=== PATIENT | female | born 1965 | race Caucasian/White ===

== ENCOUNTER 2024-12-16 09:34 | Emergency (ER) | payer BC, SELFPAY ==
--- NOTE | ~2024-12-16 | XR_ITS ---
EXAMINATION: XR CHEST 2 VIEWS HISTORY: Pneumonia? Tightness palpitations COMPARISON: There are no prior studies available for comparison. FINDINGS: PA and lateral views of the chest are submitted. The lungs are expanded and clear. There is no pleural effusion, pneumothorax, or pulmonary vascular congestion. The heart is normal in size. The bones are intact. XR/XR chest 2V IMPRESSION: Clear lungs. Electronically signed by: Eddi Valencia MD 12/16/2024 10:41 AM EDT
[2024-12-16 10:12] VITALS: BP 164/72; PULSE 78; RESP 20; TEMP 37; O2SAT 98; BMI 33.4
--- NOTE | 2024-12-16 10:15 | ECG_ITS ---
Test Reason : PALPITATIONS' Blood Pressure : */* mmHG Vent. Rate : 80 BPM Atrial Rate : 80 BPM P-R Int : 172 ms QRS Dur : 90 ms QT Int : 394 ms P-R-T Axes : 62 41 44 degrees QTcB Int : 454 ms Sinus rhythm with occasional Premature ventricular complexes Otherwise normal ECG No previous ECGs available Referred By: Ishmael Morse Electronically Signed By: LINA MILLER MD
--- NOTE | 2024-12-16 10:16 | ED_ITS ---
HPI - General Adult General Chief complaint: General Medical Stated complaint: High BP Time Seen by Provider: 12/16/24 11:57 Source: patient, RN notes reviewed and old records reviewed Mode of arrival: ambulatory Limitations: no limitations History of Present Illness ED Provider: Ciera [facility] narrative: Patient is a 59-year-old female presenting to the emergency department after checking her blood pressure and finding it to be 171/95. She notes that her primary care provider had previously recommended she begin an antihypertensive medication but patient did not want to at that time and has been monitoring her blood pressure readings at home. States she does not always check her blood pressure at the same time each day but does try to check with her feet flat on the floor after resting for a few minutes. She states that over the past week she has felt intermittent palpitations with occasional lightheadedness associated with the palpitations. She denies headaches or vision changes. States she has been on a Holter monitor and had other cardiac evaluation in the past. A time she feels her symptoms are exacerbated after eating at night. She denies current chest pain or dyspnea, palpitations. Denies current headache or vision changes. complaint: high blood pressure Onset (ago): month(s) Related Data Allergies Allergy/AdvReac Type Severity Reaction Status Date / Time Sulfa (Sulfonamide Allergy Rash Verified 12/16/24 10:12 Antibiotics) Review of Systems 2 Review of Systems: as per hpi Yes all other systems are reviewed and are negative Constitutional: Constitutional: Reports as per HPI [facility] Social History Social History Advance Directives: No Advance Directives Information Provided: No Physical Exam ED Vital Signs: Vital Signs - 24 hr 12/16/24 10:12 12/16/24 12:09 12/16/24 13:34 Temperature 98.6 F 98.3 F 98.3 F Pulse Rate 78 77 71 Respiratory Rate 20 16 18 Blood Pressure 164/72 H 154/62 H 154/65 H Pulse Oximetry 98 99 97 Oxygen Delivery Method Room Air Room Air Room Air BMI result Body Mass Index 33.4 Vital signs have been reviewed and appear to be correct. Blood pressure elevated. Heart rate normal. Respiratory rate normal. Temperature normal. Oxygen saturation normal. Const General: cooperative, healthy appearing and no acute distress Orientation/consciousness: oriented to person, oriented to place, oriented to time and patient oriented x3 Limitations: no limitations HENMT Head: Yes normocephalic and Yes atraumatic Ears: external ears normal General nose exam: Normal external nose present Face and sinus: Yes face symmetric Mouth: oropharynx normal and moist mucous membranes Throat: Yes uvula midline Eyes Pupils: Equal, round and reactive pupils present Neck Neck: Yes normal visual inspection and Yes supple Resp Effort & Inspection: normal respiratory effort and able to speak in complete sentences Auscultation: clear to auscultation bilaterally Cardio Rate: regular rate Rhythm: regular rhythm Heart sounds: S1 normal heart sound present and S2 normal heart sound present GI Palpation (GI): Soft to palpation and nontender Auscultation: normoactive bowel sounds General: Yes no CVA tenderness Back/Spine/Pelvis Back: no CVA tenderness Skin General skin exam: elasticity normal and turgor normal Neuro General: oriented to person, oriented to place, oriented to time, patient oriented x3, moves all extremities, no focal motor deficits and CN's II-XI intact bilaterally Cranial nerves: Yes Equal, round and reactive pupils present Cognition (Neuro): normal cognition Extrem General: Yes full ROM, Yes no pedal edema and Yes no calf tenderness Psych Mental Status: mental status grossly normal Affect: normal affect Thought process: Normal thought process present Course Course Course Narrative: RME: 59 yold female presents tot he ED for elevated blood pressure readings at home with palpitations for the past couple of days. labs, EkG, and chest xray ordered Medical Decision Making Medical Decision Making MDM Narrative: Patient is a 59-year-old female presenting to the emergency department after checking her blood pressure and finding it to be 171/95. On exam patient is awake, A+Ox3, BP elevated, VS otherwise WNL, afebrile, normal neurological exam without focal deficits, physical exam findings as above. Given reported symptoms and physical exam findings, initial differential includes but is not limited to hypertension, electrolyte abnormality. Unlikely ACS. Low suspicion for ICH as patient denies headache or vision changes. EKG shows sinus rhythm with PVCs. Labs unremarkable, negative troponin. X-ray chest notable for no acute abnormality. My interpretation is in agreement with the radiologist's interpretation. Results discussed with patient and all questions answered. Had lengthy discussion with the patient regarding causes of hypertension, as well as rationale for treating hypertension. Encouraged patient to call PCP for follow up appointment to initiate antihypertensive medication. Return precautions discussed at bedside. Patient verbalized understanding of and agreement with plan. Differential Diagnosis Differential Diagnoses: The differential diagnosis associated with the presentation includes as per [facility] Admission/Observation Consideration of admission/observation: Escalation of care including admission/observation considered Patient would have been admitted to the hospital and transferred to appropriate facility had their clinical presentation warranted hospital admission. Lab Data [facility] Lab Attestation statement: I reviewed the patient's lab results. as per [facility] 12/16/24 10:27 12/16/24 10:27 Labs: Lab Results 12/16/24 Range/Units 10:27 WBC 9.1 (4.8-10.8) X10*3/uL RBC 4.99 (4.20-5.50) X10*6/uL Hgb 14.9 (12.0-16.0) g/dl Hct 44.6 (37.0-47.0) % MCV 89.4 (80.0-98.0) fL MCH 29.9 (27.0-33.0) pg MCHC 33.4 (31.0-35.0) g/dl RDW 12.5 (11.0-16.0) % Plt Count 241 (160-400) X10*3/uL MPV 10.7 (9.4-12.3) fL Immature Gran % (Auto) 0.6 H (0.0-0.4) % Neut % (Auto) 75.9 H (45-73) % Lymph % (Auto) 17.0 L (20-40) % [place] % (Auto) 4.4 (2-11) % Eos % (Auto) 1.1 (0-4) % Baso % (Auto) 1.0 (0-2) % Lymph # (Auto) 1.5 (1.2-4.9) X10*3/uL [place] # (Auto) 0.4 (0.1-1.2) X10*3/uL Eos # (Auto) 0.1 (0.0-0.4) X10*3/uL Baso # (Auto) 0.1 (0.0-0.2) X10*3/uL Abs Immat Gran (auto) 0.05 H (0.00-0.03) X10*3/uL Absolute Neuts (auto) 6.9 (2.0-8.3) x10*3/uL Absolute Nucleated RBC 0.000 (0.0-0.012) X10*3/uL Nucleated RBC % (auto) 0.0 (0.0-0.2) /100WBC Sodium 140 (135-145) mmol/L Potassium 4.1 (3.3-5.1) mmol/L Chloride 108 (96-108) mmol/L Carbon Dioxide 26 (22-29) mmol/L Anion Gap 10 L (12-20) BUN 14 (9-16) mg/dL Creatinine 0.72 (0.5-1.4) mg/dL Estim Creat Clear Calc 94.7 Estimated GFR > 60 Random Glucose 142 H (60-115) mg/dL Calcium 9.4 (8.4-10.2) mg/dL Total Bilirubin 0.5 (0.0-1.0) mg/dL AST 13 (5-31) U/L ALT 14 (0-31) U/L Alkaline Phosphatase 89 (39-117) U/L Troponin I High Sens < 2.7 (<3.5-17.0) ng/L NT-Pro-B Natriuret Pep 140.1 (<300) pg/mL Total Protein 6.8 (6.5-8.0) g/dL Albumin 4.4 (3.5-5.0) g/dL Independent Interpretation I performed an independent interpretation of an: EKG (sinus rhythm with occasional PVCs, rate 80bpms, normal IA interval and QTc) and Plain X-Ray Interpretation: Chest x-ray is without evidence of acute abnormality. Radiology Impression Discussion of test interpretation with radiology: I have reviewed the radiologist's reading. Radiologist Impression: XR/XR chest 2V IMPRESSION: Clear lungs. External Record Review External record reviewed: Inpatient record, Office record and Outpatient record Discharge Plan Discharge Clinical Impression: Hypertension Patient Disposition: Home, Self-Care Instructions: How to Take a Blood Pressure Reading (ED), Hypertension (ED) Additional Instructions: You were evaluated in the emergency department today for elevated blood pressure, palpitations and dizziness. Your evaluation including EKG, labs and chest x-ray did not show evidence of any medical conditions requiring emergent treatment at this time. We do recommend that you follow up with your primary care provider to initiate treatment with medication for your elevated blood pressure. Return to the emergency department if you develop severe headache, blurred vision, double vision or other visual changes, persistent chest pain, consistently elevated blood pressure levels or any other new or concerning symptoms. Interventions: ED Discharge Assessment Last Done: 12/16/24 13:34 Discharge Date/Time: 12/16/24 13:35 Print Language: Tristanian
[2024-12-16 10:30] LABS: MANUAL DIFF FLAG NO
[2024-12-16 10:38] LABS: Hematocrit 44.6 % (37.0-47.0); Hemoglobin 14.9 g/dl (12.0-16.0); Imm Gran Abs Auto 0.05 X10*3/uL (0.00-0.03); Imm Gran Pct Auto 0.6 % (0.0-0.4); Lymphocytes Absolute Auto 1.5 X10*3/uL (1.2-4.9); Mean Corpuscular HGB Conc 33.4 g/dl (31.0-35.0); Mean Corpuscular Hemoglobin 29.9 pg (27.0-33.0); Mean Corpuscular Volume 89.4 fL (80.0-98.0); NRBC Abs Auto 0.000 X10*3/uL (0.0-0.012); NRBC Pct Auto 0.0 /100WBC (0.0-0.2); Platelet Count 241 X10*3/uL (160-400); Red Blood Count 4.99 X10*6/uL (4.20-5.50); White Blood Count 9.1 X10*3/uL (4.8-10.8)
[2024-12-16 10:54] LABS: Alanine Aminotransferase 14 U/L (0-31); Albumin Level 4.4 g/dL (3.5-5.0); Alkaline Phosphatase 89 U/L (39-117); Anion Gap 10 (12-20); Aspartate Amino Transferase 13 U/L (5-31); Blood Urea Nitrogen 14 mg/dL (9-16); Calcium 9.4 mg/dL (8.4-10.2); Carbon Dioxide 26 mmol/L (22-29); Chloride 108 mmol/L (96-108); Creatinine Clr Calc Pharmacy 94.7; Estimated Glomerular Filt Rate > 60; Potassium 4.1 mmol/L (3.3-5.1); Sodium 140 mmol/L (135-145); Total Protein 6.8 g/dL (6.5-8.0)
[2024-12-16 11:10] LABS: NT Pro B Type Natriuretic Pept 140.1 pg/mL (<300); Troponin-I High Sensitivity < 2.7 ng/L (<3.5-17.0)
[2024-12-16 12:09] VITALS: BP 154/62; PULSE 77; RESP 16; TEMP 36.8; O2SAT 99
[2024-12-16 13:34] VITALS: BP 154/65; PULSE 71; RESP 18; TEMP 36.8; O2SAT 97
== END 2024-12-16 13:35 | disposition home or self-care (01) ==
PROVIDERS: Physician Assistant; Emergency Provider Emergency Medicine
DX: R00.2 Palpitations (principal); I10 Essential (primary) hypertension; R06.02 Shortness of breath; Z79.899 Other long term (current) drug therapy
CPT/HCPCS: 36415; 71046; 80053; 83880; 84484; 85025; 93005; 99283; 99284

== ENCOUNTER → 2024-12-16 10:15 | Outpatient (BNV) | payer SELFPAY | PROVIDERS: Emergency Provider Emergency Medicine; Visit Provider Internal Medicine Cardiovascular Disease | DX: I49.3 Ventricular premature depolarization (principal) | CPT/HCPCS: 93010 ==

== ENCOUNTER → 2024-12-16 10:15 | Outpatient (BNV) | payer SELFPAY | PROVIDERS: Visit Provider Radiology Diagnostic Radiology | DX: R07.89 Other chest pain (principal); R00.2 Palpitations | CPT/HCPCS: 71046 ==